=== PATIENT | male | born 1950 | race Caucasian/White ===

== ENCOUNTER → 2022-01-15 | Day surgery (SDC) | payer OTHER, MEDICARE ==
[~2022-01-15] VITALS: Ht 185.4 cm; Wt 131.7 kg
[~2022-01-15] MED LIST: ASPIRIN EC81 MG PO; BYDUREON P2 MG/0.65 SC; BYDUREON2 MG SC; CENTRUM SILVER1 EAC1 PO; FIBER TABS625 MG PO; GABAPENTIN800 MG PO; HUMALOG 75100 UNIT/M SC; LOSARTAN-HCTZ1 EAC1 PO; LYRICA75 MG PO; MAGNESIUM27 MG PO; MELOXICAM15 MG PO; METFORMIN HCL500 M2 PO; MOBIC15 MG PO; MOBIC7.5 MG PO; NEURONTIN300 MG PO; NORCO 5-325 TA1 EACH PO; NORVASC 10MG TA10 MG PO; NOVOLOG FL100 UNIT/1 SC; OS-CAL500 MG PO; PERCOCET 5-3251 EACH PO; PRAVACHOL20 MG PO; SINGULAIR10 MG PO; STOOL SOFTENER100 M1 PO; TRAMADOL HCL50 MG PO; TRESIBA FL200 UNIT/1 SC; ULTRAM50 MG PO; VENTOLIN (2.5 MG/3 M INH; XARELTO10 MG PO; XIGDUO XR 5 MG1 EACH PO; [UNRECOGNIZED DRUG - OTHER] PO
[2022-01-15 07:55] LABS: HCT 43.4 % (42.0-52.0); HGB 14.5 g/dl (13.2-18.0); MCH 29.2 pg (25.0-31.0); MCHC 33.4 g/dL (32.0-36.0); MCV 87.3 fL (78.0-100.0); MPV 10.6 fL (6.0-9.5); RBC 4.97 M/uL (4.70-6.00); RDW 14.6 % (11.5-14.0); WBC 10.5 K/uL (4.0-10.5)
[2022-01-15 08:25] LABS: ALBUMIN 3.7 g/dL (3.4-5.0); BILIRUBIN - TOTAL 0.4 mg/dL (0.2-1.0); CREATININE 0.61 mg/dL (0.67-1.17); GLOBULIN (CALCULATION) 3.3 g/dL; POTASSIUM 3.6 mmol/L (3.5-5.1)
== END | disposition home or self-care (01) ==
LOC: FAS 07:19
PROVIDERS: Surgery
DX: Z12.11 Encounter for screening for malignant neoplasm of colon (principal); D72.829 Elevated white blood cell count, unspecified; G47.30 Sleep apnea, unspecified; E11.9 Type 2 diabetes mellitus without complications; Z86.010 Personal history of colon polyps; Z79.82 Long term (current) use of aspirin
CPT/HCPCS: 36415; 80053; 82962; J2704; J7120